=== PATIENT | male | born 1970 | race Caucasian/White ===

== ENCOUNTER 2021-06-09 21:43 | Emergency (ER) | payer SELFPAY ==
[2021-06-09 21:53] VITALS: BP 145/100; PULSE 81; RESP 18; TEMP 36.8; O2SAT 97
--- NOTE | 2021-06-10 01:02 | PC.NURSE ---
states he is having no pain at this time. urinated without difficulty. leaving without being seen. was triaged. encouraged to return if symptoms worsen
== END 2021-06-10 01:02 | disposition left against medical advice (07) ==
LOC: ANHED 06-10 01:16
DX: M54.50 Low back pain, unspecified (principal)
CPT/HCPCS: 99199

== ENCOUNTER 2023-06-23 00:51 | Day surgery (SDC) | payer BC, SELFPAY ==
[2023-06-05 09:51] VITALS: BMI 34.7
--- NOTE | 2023-06-21 15:23 | SUR.PREOP ---
Pt appointment date and time confirmed.
[2023-06-23 12:27] VITALS: BP 127/100; PULSE 85; RESP 16; TEMP 36.6; O2SAT 97
[2023-06-23] MEDS: LACTATED RINGERS 1,000 ML 150 ML IV CONT (12:41)
--- NOTE | 2023-06-23 12:56 | P.PNAN_ITS ---
Anes - Initial Pre Proc Eval Procedure: Operation Date: 06/23/23 13:30 Proposed Procedures p Screening Colonoscopy - Woody Huber MD Date/Time: 06/23/23 12:56 Surgeon: Woody Huber MD Pre Op Diagnosis: neoplasm screening Patient Data Age: 52 Gender: M Height: 1.75 m Weight: 104.2 kg Last Vital Signs Temp 36.6 C 06/23/23 12:27 Pulse 85 06/23/23 12:27 Resp 16 06/23/23 12:27 BP 127/100 H 06/23/23 12:27 Pulse Ox 97 06/23/23 12:27 O2 Del Method Room Air 06/23/23 12:27 Allergies Allergy/AdvReac Type Severity Reaction Status Date / Time Penicillins Allergy Unknown Unknown Verified 06/23/23 12:23 Home Medications Medication Instructions Recorded Confirmed Type cetirizine 10 mg tablet (Zyrtec) 10 mg PO DAILY 06/05/23 06/23/23 History metoprolol tartrate 50 mg tablet 50 mg PO DAILY 06/05/23 06/23/23 History omeprazole 40 mg capsule,delayed 40 mg PO DAILY 06/05/23 06/23/23 History release Patient hx anesthesia problems: none Family hx anesthesia problems: none Results Review: All pre-operative results and documents have been reviewed as part of the pre- operative evaluation. [facility] Past Medical History Medical History (Updated 06/23/23 @ 12:56 by Bernardo Kirkpatrick MD) HTN (hypertension) Obesity Social History Social History Smoking status: Never smoker Alcohol intake: current Substance use: never Substance use type: does not use Living arrangements: with family Spiritual care concerns: No Anes - Eval Final PreProcedure Day of Procedure 06/23/23 12:56 Patient weight: obese Heart: regular rate and rhythm Lungs: clear to auscultation Airway: Mallampati scale class II Neurological: alert and oriented Last oral intake: >/= 8 hours ASA classification: III Emergent: no Anesthetic plan: proceed Anesthesia type and monitoring: general GIVS and standard monitoring Results Review: All pre-operative results and documents have been reviewed as part of the pre- operative evaluation. Informed Consent: The patient's anesthetic plan and its attendant risks and benefits were discussed with the patient/family/POA. Questions were solicited and answers provided to the satisfaction of the patient/family/POA.
--- NOTE | 2023-06-23 13:23 | PM.HPGS ---
History of Present Illness History of Present Illness Consent: Risks, benefits, and alternatives have been discussed and questions answered. Patient agrees to proceed with procedure. Chief complaint: neoplasm screening Narrative: Tapan Brito is a 52 year old male Referred for colon cancer screening. Review of Systems Review of Systems: All systems reviewed & are unremarkable except as noted in HPI and below PMFSH Past Medical History Medical History HTN (hypertension) Obesity Social History Social History Smoking status: Never smoker Alcohol intake: current Substance use: never Substance use type: does not use Living arrangements: with family Spiritual care concerns: No Meds Home Medications and Allergies Home Medications Medication Instructions Recorded Confirmed Type cetirizine 10 mg tablet (Zyrtec) 10 mg PO DAILY 06/05/23 06/23/23 History metoprolol tartrate 50 mg tablet 50 mg PO DAILY 06/05/23 06/23/23 History omeprazole 40 mg capsule,delayed 40 mg PO DAILY 06/05/23 06/23/23 History release Allergies Allergy/AdvReac Type Severity Reaction Status Date / Time Penicillins Allergy Unknown Unknown Verified 06/23/23 12:23 Vital Signs Vital Signs - 24 hr 06/23/23 12:27 Temperature 36.6 C Pulse Rate 85 Respiratory Rate 16 Blood Pressure 127/100 H Pulse Oximetry 97 Oxygen Delivery Room Air Exam Resp: Auscultation: clear to auscultation bilaterally Cardio: Rate: regular rate Rhythm: regular rhythm GI: GI Palp: Yes Soft to palpation and No Tenderness to palpation present (GI) Assessment and Plan Assessment and plan (1) Colon cancer screening: Code(s): Z12.11 - Encounter for screening for malignant neoplasm of colon Status: Acute Assessment and Plan: Colonoscopy with possible biopsy or polypectomy or cautery or injection of substances.
[2023-06-23 13:50] VITALS: BP 124/86; PULSE 78; RESP 22; O2SAT 100
[2023-06-23 14:00] VITALS: BP 125/91; PULSE 84; RESP 16; O2SAT 100
[2023-06-23 14:10] VITALS: BP 132/98; PULSE 84; RESP 19; O2SAT 100
== END 2023-06-23 14:17 | disposition home or self-care (01) ==
PROVIDERS: PCP Registered Nurse; Visit Provider Internal Medicine Gastroenterology
PROC: 0DJD8ZZ Inspection of Lower Intestinal Tract, Via Natural or Artificial Opening Endoscopic (ICD-10-PCS; CPT 45378; principal; 2023-06-23 13:30)
DX: Z12.11 Encounter for screening for malignant neoplasm of colon (principal); D12.4 Benign neoplasm of descending colon; I10 Essential (primary) hypertension; E66.9 Obesity, unspecified; Z68.33 Body mass index [BMI] 33.0-33.9, adult
CPT/HCPCS: 45380; 88305; J2704; J7120

== ENCOUNTER 2023-07-16 04:52 | Emergency (ER) | payer BC, SELFPAY ==
--- NOTE | ~2023-07-16 | CT_ITS ---
EXAMINATION: CT abdomen pelvis w con DATE: 07/16/2023 06:35 INDICATION: Right lower quadrant pain TECHNIQUE: Computed tomography (CT) of the abdomen and pelvis was performed with 100 cc Omnipaque 350 intravenous contrast. The dose-length product was 1032.28 mGy-cm. Automated exposure control and ite rative reconstruction technique were employed. COMPARISON: CT dated 10/28/2017. FINDINGS: There is a 2 mm left lower lobe nodule, likely benign. Heart size normal. No significant pl eural or pericardial effusion. No significant vascular abnormality. There is a 3 mm right UVJ stone w ith mild hydronephrosis. Fatty infiltration of the liver. There are gallstones. The spleen, pancreas, adrenal glands and left kidney are unremarkable. Normal appendix. Bladder is decompressed. No abnorm al pelvic masses or fluid collections. No significant vascular abnormality. There is mildly prominent mesenteric lymph nodes with groundglass opacification in the mesentery consistent with panniculitis. Small fat-containing umbilical hernia. No acute osseous abnormality. IMPRESSION: 1. Right UVJ stone measuring 3 mm with mild hydronephrosis. 2: Cholelithiasis. 3: Hepatic steatosis. Reviewed, dictated and finalized at location A.
[2023-07-16 04:55] VITALS: BP 116/87; PULSE 86; RESP 20; TEMP 36.4; O2SAT 97
[2023-07-16 05:00] VITALS: BP 153/117; PULSE 76; RESP 16; O2SAT 100
[2023-07-16] MEDS: ONDANSETRON INJ 4 MG/2 ML VIAL IV PUSH (05:07)
[2023-07-16] MEDS: MORPHINE SULFATE (*CRX) 4 MG/ML INJ IV PUSH (05:07)
[2023-07-16 05:12] LABS: Basophils Percent Auto 0.3 % (0.2-1.2); Eosinophils Absolute Auto 0.2 K/mm3 (0-0.3); Eosinophils Percent Auto 2.4 % (0-4.4); Hematocrit 45.5 % (42.0-52.0); Hemoglobin 14.6 g/dL (14.0-18.0); Immature Granulocyte Absolute 0.03 K/mm3 (0.00-0.031); Immature Granulocyte Percent A 0.3 % (0-0.5); Lymphocytes Absolute Auto 3.79 K/mm3 (0.9-3.2); Mean Corpuscular HGB Conc 32.1 g/dl (32-36); Mean Corpuscular Hemoglobin 28.7 pg (26-34); Mean Corpuscular Volume 89.4 fl (80-100); Mean Platelet Volume 9.2 fl (7.4-10.4); Monocytes Absolute Auto 0.6 K/mm3 (0.1-0.6); Monocytes Percent Auto 6.9 % (2.6-8.5); Neutrophils Absolute Auto 4.2 K/mm3 (1.3-6.7); Neutrophils Percent Auto 47.1 % (45.5-73.1); Platelet Count Result 298 k/mm3 (150-375); Red Blood Count 5.09 M/mm3 (4.6-6.20); Red Cell Distribution Width 12.7 % (11.5-14.5); White Blood Count 8.8 K/mm3 (4.5-10.0)
[2023-07-16 05:25] LABS: Alanine Aminotransferase 34 U/L (6-50); Albumin Level 4.1 g/dL (3.5-5.1); Alkaline Phosphatase 116 U/L (38-126); Anion Gap 5 mmol/L (8-16); Aspartate Amino Transferase 34 U/L (17-59); Bilirubin,Total 0.5 mg/dL (0.2-1.3); Blood Urea Nitrogen 15 mg/dL (9-20); Carbon Dioxide 29 mmol/L (22-30); Chloride 106 mmol/L (98-107); Estimated CRCL calculation 92 ml/min; Estimated Glomerular Filt Rate > 60; Glucose 122 mg/dL (65-110); Lipase 72 U/L (23-300); Potassium 3.8 mmol/L (3.4-5.0); Sodium 140 mmol/L (137-145)
[2023-07-16 05:26] LABS: Lactic Acid Reflex 2.2 mmol/L (0.7-2.0)
[2023-07-16 06:07] LABS: Bacteria Urine None Seen /hpf; Non Pathogenic Casts 0-2; RBC Urine 0-2 /hpf (0-2); Squamous Epithelial Cell Urine None Seen /hpf (Few); WBC Urine 0-5 /hpf (0-3)
[2023-07-16 06:10] LABS: Appearance Urine Clear (Clear); Bilirubin Urine Negative (Negative); Blood Urine Trace-intact (Negative); Color Urine Yellow (Yellow); Glucose Urine UA Negative (Negative); Ketones Urine Negative (Negative); Leukocyte Esterase Ur Negative LEU/UL (Negative); Nitrate Urine Negative (Negative); Protein Urine Negative (Negative); Specific Grav Ur 1.025 (1.001-1.035); Urobilinogen Urine 0.2 mg/dL (<2.0); pH Urine 5.5 (5.0-9.0)
[2023-07-16 06:11] LABS: Add Urine Microscopic? YES
[2023-07-16] MEDS: HYDROmorphone HCL INJ (*CRX) 1 MG/ML SYR IV PUSH (06:19)
--- NOTE | 2023-07-16 06:40 | ED.ABDPAIN ---
HPI - Abdominal Pain General Chief Complaint: Abdominal Pain Stated Complaint: ABD pain, RLQ pain Time Seen by Provider: 07/16/23 05:00 History of Present Illness HPI narrative: This is a 52-year-old male, with history of kidney stones, presents to the emergency department complaining of abdominal pain beginning early this evening. The patient states he was in his usual state of health when he was woken from sleep by a sharp right-sided flank pain that radiates to the right lower quadrant of the abdomen. The pain is intermittent and severe at maximum without any obvious aggravating or alleviating factors. That is associated with nausea, though no vomiting. He denies hematuria, dysuria or bleeding from any source. Related Data Home Medications Medication Instructions Recorded Confirmed cetirizine 10 mg tablet (Zyrtec) 10 mg PO DAILY 06/05/23 06/23/23 metoprolol tartrate 50 mg tablet 50 mg PO DAILY 06/05/23 06/23/23 omeprazole 40 mg capsule,delayed 40 mg PO DAILY 06/05/23 06/23/23 release Allergies Allergy/AdvReac Type Severity Reaction Status Date / Time Penicillins Allergy Unknown Unknown Verified 07/16/23 05:06 Review of Systems Review of Systems: CONSTITUTIONAL: Denies fever, chills, or sweats. CARDIOVASCULAR: Denies chest pain, palpitations, or edema. RESPIRATORY: Denies cough or dyspnea. GASTROINTESTINAL: Abdominal pain, nausea Denies vomiting, or diarrhea. GENITOURINARY: Denies dysuria or hematuria. SKIN: Denies rash or itching. MUSCULOSKELETAL: Denies back pain, joint pain, or myalgia. NEUROLOGIC: Denies headache, numbness, dizziness, or weakness. PSYCHIATRIC: Denies anxiety or depression. PMFSH Past Medical History Medical History HTN (hypertension) Obesity Social History Social History Smoking status: Never smoker Alcohol intake: current Substance use: never Substance use type: does not use Living arrangements: with family Spiritual care concerns: No Exam Narrative: GENERAL: Well-developed, well-nourished, and in no acute distress. HEAD: Normocephalic, atraumatic. EYES: PERRLA and EOMI. CHEST: Clear to auscultation. No respiratory distress. No wheezes rales or rhonchi HEART: Regular rate and rhythm. No murmur heard. Normal peripheral pulses. ABDOMEN: Soft, mild right lower quadrant tenderness to palpation without rebound or guarding, nondistended, normal active bowel sounds. No CVA tenderness to palpation EXTREMITIES: Normal range of motion. No edema. SKIN: Warm, dry, no rash. NEURO: Alert and oriented x3. No focal deficit. Moving all 4 limbs spontaneously PSYCH: Normal mood and affect. Course Course Emergency Course: 06:43 - CBC unremarkable. Chemistries demonstrate slightly elevated lactic acid of 2.2 but is otherwise unremarkable, including a normal lipase. Urinalysis demonstrates trace blood with 0-2 RBCs without changes concerning for infection. My review of the patient's CT abdomen pelvis demonstrates mild hydronephrosis on the right with what appears to be a kidney stone. Radiology interpretation pending. 06:51 - CT abdomen pelvis demonstrates a 3 mm stone at the UVJ. On re-evaluation, the patient states his pain is improved. Will give IV Toradol and discharge with tamsulosin, antiemetics, pain medications recommendation for primary care and Urology follow-up. I discussed the findings and recommendations with the patient. Discussed return and emergency precautions including signs/symptoms of acute abdomen. The patient voiced understanding and agreement with the plan. All questions answered to his satisfaction. Vital Signs Vital signs: Vital Signs Temperature 97.5 F L 07/16/23 04:55 Pulse Rate 86 07/16/23 04:55 Respiratory Rate 20 07/16/23 04:55 Blood Pressure 116/87 07/16/23 04:55 Pulse Oximetry 97 07/16/23 04:55 Oxygen Delivery Room A
[2023-07-16] MEDS: KETOROLAC 30 MG/ML VIAL (*BKC) IV PUSH (06:52)
[2023-07-16 08:13] LABS: Reflex Lactic Acid Yes or No Add Lactic
== END 2023-07-16 07:24 | disposition home or self-care (01) ==
PROVIDERS: Emergency Provider Preventive Medicine Aerospace Medicine; PCP Registered Nurse
DX: N13.2 Hydronephrosis with renal and ureteral calculous obstruction (principal); I10 Essential (primary) hypertension; E66.9 Obesity, unspecified; Z68.34 Body mass index [BMI] 34.0-34.9, adult; Z87.442 Personal history of urinary calculi; K76.0 Fatty (change of) liver, not elsewhere classified; K80.20 Calculus of gallbladder without cholecystitis without obstruction
CPT/HCPCS: 36415; 74177; 80053; 81001; 83605; 83690; 85025; 96374; 96375; 99284; J1170; J1885; J2270; J2405; Q9967

== ENCOUNTER 2024-06-26 20:16 | Emergency (ER) | payer BC, SELFPAY ==
--- NOTE | ~2024-06-26 | XR_ITS ---
CHEST RADIOGRAPH, PA AND LATERAL CLINICAL HISTORY: chest pain . COMPARISON: None available TECHNIQUE: PA and lateral views of the chest. FINDINGS The cardiomediastinal silhouette is unremarkable. The lungs are clear. Visualized osseous structures and soft tissues are unremarkable. IMPRESSION: No focal infiltrate or effusion. Reviewed, dictated and finalized at location A. RGIST
--- NOTE | 2024-06-26 20:19 | ECG_ITS ---
Test Date: 2024-06-26 20:31:24 Measurements Intervals [place] Rate: 74 P: 33 NV: 194 QRS: 16 QRSD: 98 T: 18 QT: 358 QTc: 399 Interpretive Statements SINUS RHYTHM No previous ECG available for comparison Electronically Signed On 06-27-2024 13:57:13 RN [facility] by Shar Lim M.D.
[2024-06-26 20:20] VITALS: BP 137/94; PULSE 78; RESP 15; TEMP 36.5; O2SAT 100
--- OUTSIDE RECORDS SUMMARY | 2024-06-26 20:20 | XMS_ITS | Clinical Summary ---
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 Gender Identity Not on file Sexual Orientation Not on file Plan of Treatment Health Maintenance Due Date Last Done Comments Hepatitis C Virus (HCV) Screening 1970 TdaP Immunization 1970 Hepatitis B Immunization (1 of 3 - 19+ 3-dose series) 10/07/1990 Colonoscopy 10/07/2016 Colorectal Cancer Screening 10/07/2016 Cologuard 10/07/2021 Immunochemical Fecal Occult Blood 10/07/2021 Pneumococcal Immunization (5 0+ years) (1 of 1 - PCV) 10/07/2021 Zoster Immunization (1 of 2) 10/07/2021 Influenza Immunization (#1) 2023 03/01/2013 SARS-COV-2 Immunization ( - season) 2023 05/19/2021, 07/10/2020, 06/20/2020 Respiratory Syncytial Virus (RSV) Immunization (Adult) (1 - 1-dose 75+ series) 10/07/2046 Meningococcal Immunization (ACWY) Aged Out No longer eligible b ased on patient's age to complete this topic Pneumococcal Immunization Combined Aged Out No longer eligible b ased on patient's age to complete this topic Rotavirus Immunization Aged Out No lo nger eligible based on patient's age to complete this topic
[2024-06-26 20:29] VITALS: BP 149/109; PULSE 74; PULSE 79; RESP 13; O2SAT 99
[2024-06-26 20:45] LABS: Basophils Absolute Auto 0.1 K/mm3 (0.0-0.1); Basophils Percent Auto 0.4 % (0.2-1.2); Eosinophils Absolute Auto 0.2 K/mm3 (0-0.3); Eosinophils Percent Auto 1.6 % (0-4.4); Hematocrit 47.2 % (42.0-52.0); Hemoglobin 15.7 g/dL (14.0-18.0); Immature Granulocyte Absolute 0.04 K/mm3 (0.00-0.031); Immature Granulocyte Percent A 0.3 % (0-0.5); Mean Corpuscular HGB Conc 33.3 g/dl (32-36); Mean Corpuscular Hemoglobin 28.5 pg (26-34); Mean Corpuscular Volume 85.7 fl (80-100); Mean Platelet Volume 9.4 fl (7.4-10.4); Monocytes Absolute Auto 0.8 K/mm3 (0.1-0.6); Monocytes Percent Auto 7.2 % (2.6-8.5); Neutrophils Absolute Auto 6.9 K/mm3 (1.3-6.7); Neutrophils Percent Auto 59.5 % (45.5-73.1); Platelet Count Result 339 k/mm3 (150-375); Red Blood Count 5.51 M/mm3 (4.6-6.20); White Blood Count 11.6 K/mm3 (4.5-10.0)
[2024-06-26 20:54] LABS: Alanine Aminotransferase 54 U/L (6-50); Albumin Level 4.3 g/dL (3.5-5.1); Alkaline Phosphatase 103 U/L (38-126); Anion Gap 13 mmol/L (4-12); Aspartate Amino Transferase 41 U/L (17-59); Bilirubin,Total 0.8 mg/dL (0.2-1.3); Blood Urea Nitrogen 18 mg/dL (9-20); Calcium 9.2 mg/dL (8.4-10.2); Carbon Dioxide 24 mmol/L (22-30); Chloride 102 mmol/L (98-107); Estimated CRCL calculation 94 ml/min; Estimated Glomerular Filt Rate > 60; Glucose 109 mg/dL (65-110); Sodium 139 mmol/L (137-145)
--- OUTSIDE RECORDS SUMMARY | 2024-06-26 20:55 | XMS_ITS | Clinical Summary ---
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
[2024-06-26 21:06] LABS: Partial Thromboplastin Time 26.5 Seconds (22.3-36.8); Troponin I < 0.012 ng/mL (0.000-0.034)
[2024-06-26 21:10] LABS: Prothrombin Time 13.2 Seconds (11.1-14.7)
[2024-06-26 21:35] LABS: D Dimer 0.35 ug/mL (<0.48)
--- NOTE | 2024-06-26 21:39 | ED_ITS ---
HPI - General Adult General Chief complaint: Shortness of Breath/Dyspnea Stated complaint: Left shoulder pain, SHOB, Nausea-Diarrhea Time Seen by Provider: 06/26/24 20:43 History of Present Illness HPI narrative: Patient 53-year-old gentleman who presents emergency department with chief complaint of pain in the left shoulder radiating into the chest patient states been ongoing since Monday reports intermittent does report that it is worsened by certain positions patient reports no trauma states that he also has had some nausea with some discomfort in his epigastric region Related Data Home Medications ?Medication ?Instructions ?Recorded ?Confirmed ?Last Taken ?Type cetirizine 10 mg tablet (Zyrtec) 10 mg PO DAILY 06/05/23 06/23/23 06/22/23 History metoprolol tartrate 50 mg tablet 50 mg PO DAILY 06/05/23 06/23/23 06/23/23 09:30 History omeprazole 40 mg capsule,delayed 40 mg PO DAILY 06/05/23 06/23/23 06/22/23 History release Allergies Allergy/AdvReac Type Severity Reaction Status Date / Time Penicillins Allergy Unknown Unknown Verified 06/26/24 20:18 Review of Systems 2 Review of Systems: A 10 system review of systems was completed on the patient and is negative except for what is stated in the HPI. Nursing and ancillary documentation was reviewed. [facility] Past Medical History Medical History HTN (hypertension) Obesity Social History Social History Smoking status: Never smoker Alcohol intake: current Substance use: never Substance use type: does not use Living arrangements: with family Spiritual care concerns: No Exam 2 Narrative: GENERAL: Well-appearing, well-nourished, and in no acute distress. HEAD: Normocephalic, atraumatic. EYES: PERRLA and EOMI. ENT: Nares clear, no rhinorrhea or epistaxis. Mucous membranes moist. NECK: Supple. CHEST: Clear to auscultation. No respiratory distress. HEART: Regular rate and rhythm. No murmur heard. Normal peripheral pulses. ABDOMEN: Soft, nontender, nondistended, normal active bowel sounds. EXTREMITIES: Normal range of motion. No edema. SKIN: Warm, dry, no rash. NEURO: No focal deficits. Alert and oriented x3. PSYCH: Normal mood and affect. Course Vital Signs Vital signs: Vital Signs Temperature 36.5 C 06/26/24 20:20 Pulse Rate 78 06/26/24 20:20 Respiratory Rate 15 06/26/24 20:20 Blood Pressure 137/94 H 06/26/24 20:20 Pulse Oximetry 100 06/26/24 20:20 Oxygen Delivery Room Air 06/26/24 20:20 Temperature 36.5 C 06/26/24 20:20 Pulse Rate 74 06/26/24 20:29 Respiratory Rate 13 06/26/24 20:29 Blood Pressure 149/109 H 06/26/24 20:29 Pulse Oximetry 99 06/26/24 20:29 Oxygen Delivery Room Air 06/26/24 20:29 Medical Decision Making [facility] Narrative Medical decision making narrative: Differential diagnosis includes electrolyte abnormality, ACS, PE, pneumonia Laboratory studies were obtained on the patient showed normal CBC normal CMP ALT was 54 bilirubin is normal troponin was negative chest x-ray showed no focal infiltrate EKG showed no acute ischemic changes Vital Signs Vital Signs: Vital Signs Temperature 36.5 C 06/26/24 20:20 Pulse Rate 78 06/26/24 20:20 Respiratory Rate 15 06/26/24 20:20 Blood Pressure 137/94 H 06/26/24 20:20 Pulse Oximetry 100 06/26/24 20:20 Oxygen Delivery Room Air 06/26/24 20:20 Temperature 36.5 C 06/26/24 20:20 Pulse Rate 74 06/26/24 20:29 Respiratory Rate 13 06/26/24 20:29 Blood Pressure 149/109 H 06/26/24 20:29 Pulse Oximetry 99 06/26/24 20:29 Oxygen Delivery Room Air 06/26/24 20:29 Lab Data 06/26/24 20:39 06/26/24 20:39 Labs: Lab Results 06/26/24 Range/Units 20:39 WBC 11.6 H (4.5-10.0) K/mm3 RBC 5.51 (4.6-6.20) M/mm3 Hgb 15.7 (14.0-18.0) g/dL Hct 47.2 (42.0-52.0) % MCV 85.7 (80-100) fl MCH 28.5 (26-34) pg MCHC 33.3 (32-36) g/dl RDW 13.0 (11.5-14.5) % Plt Count 339 (150-375) k/mm3 MPV 9.4 (7.4-10.4) fl Immature Gran % (Auto) 0.3 (0-0.5) % Neut % (Auto) 59.5 (45.5-73.1) % Lymph % (Auto) 31.0 (18.3-44.2) % [place] % (Auto) 7.2 (2.6-8.5) % Eos % (Auto) 1.6 (0-4.4) % Baso % (Auto) 0.4 (0.2-1.2) % Lymph # (Auto) 3.60 H (0.9-3.2) K/mm3 Cuming # (Auto) 0.8 H (0.1-0.6) K/mm3 Eos # (Auto) 0.2 (0-0.3) K/mm3 Baso # (Auto) 0.1 (0.0-0.1) K/mm3 Abs Immat Gran (auto) 0.04 H (0.00-0.031) K/mm3 Absolute Neuts (auto) 6.9 H (1.3-6.7) K/mm3 Absolute Nucleated RBC 0.000 (0.0-0.012) K/mm3 Nucleated RBC % 0.0 (0.0-0.2) % PT 13.2 (11.1-14.7) Seconds INR 1.0 APTT 26.5 (22.3-36.8) Seconds D-Dimer 0.35 (<0.48) ug/mL Sodium 139 (137-145) mmol/L Potassium 4.0 (3.4-5.0) mmol/L Chloride 102 (98-107) mmol/L Carbon Dioxide 24 (22-30) mmol/L Anion Gap 13 H (4-12) mmol/L BUN 18 (9-20) mg/dL Creatinine 0.99 (0.7-1.3) mg/dL Estim Creat Clear Calc 94 ml/min Estimated GFR > 60 (59 - ) Glucose 109 (65-110) mg/dL Calcium 9.2 (8.4-10.2) mg/dL Total Bilirubin 0.8 (0.2-1.3) mg/dL AST 41 (17-59) U/L ALT 54 H (6-50) U/L Alkaline Phosphatase 103 (38-126) U/L Troponin I < 0.012 (0.000-0.034) ng/mL Total Protein 8.0 (6.3-8.2) g/dL Albumin 4.3 (3.5-5.1) g/dL Discharge Plan Discharge Clinical Impression: Atypical chest pain Patient Disposition: Home, Self-Care Condition: Stable Instructions: Antibiotic Form, Chest Pain (ED) Patient Language: Serbian Prescriptions: No Action cetirizine [Zyrtec] 10 mg Tablet 10 mg PO DAILY omeprazole 40 mg capsule,delayed release(DR/EC) 40 mg PO DAILY metoprolol tartrate 50 mg tablet 50 mg PO DAILY tamsulosin 0.4 mg capsule 0.4 mg PO DAILY 14 Days Qty: 14 0RF oxycodone-acetaminophen [Endocet] 5-325 mg tablet 1 tablet PO Q8H PRN (Reason: pain, severe) Qty: 12 0RF ondansetron HCl 4 mg tablet 4 mg PO Q8H PRN (Reason: nausea and vomiting) Qty: 12 0RF Follow-up/Referrals: Linda Wise CRNA [Primary Care Provider] - Time of Disposition: 22:52
[2024-06-26 23:09] VITALS: BP 139/99; PULSE 68; RESP 20; O2SAT 98
== END 2024-06-26 23:10 | disposition home or self-care (01) ==
PROVIDERS: Emergency Medicine; Emergency Provider Emergency Medicine; PCP Registered Nurse
DX: R07.89 Other chest pain (principal); I10 Essential (primary) hypertension; E66.9 Obesity, unspecified; Z68.35 Body mass index [BMI] 35.0-35.9, adult
CPT/HCPCS: 36415; 71046; 80053; 84484; 85025; 85380; 85610; 85730; 93005; 99284